=== PATIENT | female | born 1990 | race Caucasian/White ===

== ENCOUNTER 2020-01-10 12:03 | Emergency (ER) | payer MEDICAID ==
[~2020-01-10] VITALS: Ht 154.9 cm; Wt 61.2 kg
[2020-01-10 12:25] VITALS: BP_SYST 124
[2020-01-10 13:45] VITALS: BP_SYST 124
== END 2020-01-10 13:45 | disposition home or self-care (01) ==
LOC: SED 12:03
DX: B97.89 Other viral agents as the cause of diseases classified elsewhere (principal)
CPT/HCPCS: 36415; 86403; 87081; 99283